=== PATIENT | female | born 1990 | race Two or more races ===

== ENCOUNTER 2023-05-12 20:05 | Emergency (ER) | payer OTHER ==
[~2023-05-12] VITALS: Ht 152.4 cm; Wt 52.2 kg
[2023-05-12] MEDS ORDERED: TRAMADOL HCL 50 MG TABLET PO ONE (21:00)
[2023-05-12] MEDS ORDERED: 0.9 % SODIUM CHLORIDE 1 ML IV ONE (21:00)
[2023-05-12 21:35] LABS: HEMATOCRIT 40.1 % (36.0-45.00); HEMOGLOBIN 13.7 g/dL (12.0-15.00); MEAN CELL VOLUME 92.9 fL (80.00-100.00); MEAN CORPUSCULAR HEMOGLOBIN 31.8 pg (27.00-32.0); MEAN CORPUSCULAR HGB CONC 34.2 g/dl (32.0-36.0); PLATELET COUNT 319 K/uL (150-450); RED BLOOD COUNT 4.32 M/uL (4.00-6.00); RED CELL DISTRIBUTION WIDTH 12.8 % (11.5-14.5)
[2023-05-12] MEDS ORDERED: PROMETHAZINE HCL 50 MG/ML AMPUL IM ONE (21:45)
[2023-05-12 22:05] LABS: ALBUMIN 3.3 gm/dL (3.4-5.0); ALKALINE PHOSPHATASE 62 U/L (50-136); ALT/SGPT 25 U/L (12-78); ANION GAP 10 (10.0-20.0); AST/SGOT 17 U/L (15-37); BLOOD UREA NITROGEN 13 mg/dL (7-18); BUN CREA RATIO 18 (7.0-25.0); CALCIUM 8.8 mg/dL (8.5-10.1); CARBON DIOXIDE 27 mEq/L (21-32); CHLORIDE 107 mmol/L (98-107); CREATININE SERUM 0.73 mg/dL (0.55-1.02); GFR 91.81; GLOBULINA 4.3 G/DL (2.4-3.5); GLUCOSE FASTING 95 mg/dL (65-100); OSMOLALITY SERUM 279 MOSM/KG (275-295); POTASSIUM 4.01 mEq/L (3.5-5.1); SODIUM 140 mmol/L (136-145); TOTAL PROTEIN 7.6 gm/dL (6.4-8.2)
[2023-05-12 22:06] LABS: HCG QUANTITATIVE < 1 mUI/mL (1-3)
== END 2023-05-12 23:46 | disposition home or self-care (01) ==
LOC: ER 20:05
PROVIDERS: General Practice
DX: K52.9 Noninfective gastroenteritis and colitis, unspecified (principal); G43.909 Migraine, unspecified, not intractable, without status migrainosus; Z20.822 Contact with and (suspected) exposure to COVID-19; Z88.6 Allergy status to analgesic agent